=== PATIENT | male | born 1950 | race Caucasian/White ===

== ENCOUNTER 2022-07-30 07:51 | Outpatient (CLI) | payer MEDICARE, BC, SELFPAY | END 2022-07-30 07:52 | disposition home or self-care (01) | PROVIDERS: Visit Provider Family Medicine | DX: M54.16 Radiculopathy, lumbar region (principal); M51.36 Other intervertebral disc degeneration, lumbar region | CPT/HCPCS: 64483; J1100; Q9966 ==